=== PATIENT | female | born 1990 | race Caucasian/White ===

== ENCOUNTER 2016-12-06 11:21 | Emergency (ER) | payer OTHER, BC ==
[~2016-12-06] VITALS: Ht 162.6 cm; Wt 72.7 kg
[2016-12-06 13:33] VITALS: BP 126/78
== END 2016-12-06 13:34 | disposition home or self-care (01) ==
LOC: EME 11:21
DX: S60.222A Contusion of left hand, initial encounter (principal); S39.012A Strain of muscle, fascia and tendon of lower back, initial encounter; S40.012A Contusion of left shoulder, initial encounter; V43.52XA Car driver injured in collision with other type car in traffic accident, initial encounter; Y92.410 Unspecified street and highway as the place of occurrence of the external cause
CPT/HCPCS: 73130; 99281; 99283